=== PATIENT | male | born 1980 | race Caucasian/White ===

== ENCOUNTER 2016-12-21 10:55 | Day surgery (SDC) | payer BC, OTHER ==
--- NOTE | 2016-12-17 14:18 | DIAGNOSTIC IMAGING REPORT ---
CHEST 2 VIEWS ROUTINE CLINICAL HISTORY: N20.0 Nephrolithiasis nephrocalcinosis COMPARISON STUDY: No previous studies for comparison. FINDINGS: The bones soft tissues and hemidiaphragms are normal. The cardiomediastinal silhouette is normal. The lungs are clear. The pulmonary vasculature is normal. IMPRESSION: Negative chest. Electronically signed by: Stalin Pettit M.D. 12/17/2016 2:16 PM Dictated Date/Time: 12/17/2016 2:16 PM
--- NOTE | 2016-12-17 14:40 | DIAGNOSTIC IMAGING REPORT ---
KUB CLINICAL HISTORY: N20.0 Nephrolithiasis nephrocalcinosis COMPARISON STUDY: 07/02/2016 FINDINGS: Interval removal of the right ureteral stent. No abnormal calcifications. Nonobstructive bowel pattern. IMPRESSION: Interval removal of the right ureteral stent. No evidence for nephrocalcinosis. Electronically signed by: Stalin Pettit M.D. 12/17/2016 2:38 PM Dictated Date/Time: 12/17/2016 2:38 PM
[2016-12-20 16:16] VITALS: Ht 177.8 cm; Wt 90.9 kg
[~2016-12-21] VITALS: Ht 177.8 cm; Wt 90.9 kg
[~2016-12-21 10:55] MED LIST: CALC500C3 PO; CIPROFLOXACIN / D5W 400 MG IV SCH; LACTATED RINGER'S 1000ML 1,000 ML IV SCH; OXYC-57 PO; SULF800T23 PO; TAMS0.4C38 PO
[2016-12-21 11:13] VITALS: BP 123/75; PULSE 74; TEMP 36.6; O2SAT 97
[2016-12-21] MEDS ORDERED: FENTANYL CITRATE INJ 50 MCG/1 ML 2 ML VIAL ONE (11:13)
[2016-12-21] MEDS ORDERED: MIDAZOLAM HCL 1 MG/ML 2ML VIAL ONE (11:13)
--- NOTE | 2016-12-21 11:34 | History & Physical Bridge Note ---
H&P Re-Evaluation Bridge Note: I have examined the patient, reviewed the History & Physical and in the interval since the performance of the History & Physical I have noted the following changes of clinical significance: No changes noted
[2016-12-21] MEDS ORDERED: CONRAY 30% 150ML BOTTLE ONE (11:39)
[2016-12-21] MEDS ORDERED: OXYC-57 PO (11:40)
[2016-12-21] MEDS ORDERED: SULF800T23 PO (11:40)
[2016-12-21] MEDS ORDERED: PHEN-775 PO (11:40)
[2016-12-21] MEDS ORDERED: POTATAB2 PO (11:41)
--- NOTE | 2016-12-21 11:41 | Discharge Instructions ---
Discharge Instructions Date of Service Dec 21, 2016. Admission Reason for Admission: STONE Discharge Discharge Diagnosis / Problem: stones Discharge Goals Goal(s): Decrease discomfort, Improve function, Increase independence, Improve disease control Activity Recommendations Activity Limitations: resume your previous activity Lifting Limitations: none Exercise/Sports Limitations: none May Resume Sexual Activity: when tolerated Shower/Bathe: no limitations Driving or Machine Use: resume 1 day after discharge . Instructions / Follow-Up Instructions / Follow-Up Please do not pull on the string that is taped to your penis. Please come to Dr. Madison's office on Tuesday, December 27 at 9AM to have your stent removed. Discharge Diet Recommended Diet: Regular Diet Pending Studies Studies pending at discharge: no Medical Emergencies . Who to Call and When: Medical Emergencies: If at any time you feel your situation is an emergency, please call 911 immediately. . Non-Emergent Contact Non-Emergency issues call your: Urologist Call Non-Emergent contact if: you have a fever, temperature is above 101.5, your pain is not controlled, your pain is worsening . . "Provider Documentation" section prepared by Molina Osman. . VTE Core Measure Inpt VTE Proph given/why not?: Treatment not indicated
[2016-12-21] MEDS ORDERED: ONDANSETRON INJ 2 MG/ML 2 ML VIAL IV PRN (11:45)
[2016-12-21] MEDS ORDERED: ATROPINE SULFATE 0.1 MG/ML 5ML SYR IV PRN (11:45)
[2016-12-21] MEDS ORDERED: FENTANYL CITRATE INJ 50 MCG/1 ML 2 ML VIAL IV PRN (11:45)
[2016-12-21] MEDS ORDERED: EpHEDrine SULFATE INJ 50 MG/ML AMP IV PRN (11:45)
[2016-12-21] MEDS ORDERED: DEXAMETHASONE SOD INJ 4 MG/ML VIAL ONE (12:30)
[2016-12-21] MEDS ORDERED: ONDANSETRON INJ 2 MG/ML 2 ML VIAL ONE (12:30)
[2016-12-21] MEDS ORDERED: KETOROLAC TROMETHAMINE 30 MG/ML VIAL ONE (12:30)
[2016-12-21] MEDS ORDERED: PROPOFOL IV EMULSION 10 MG/ML 20 ML VIAL IV ONE (12:30)
[2016-12-21] MEDS ORDERED: LIDOCAINE HCL 2% 2 ML VIAL (20MG/ML) ONE (12:30)
--- NOTE | 2016-12-21 14:13 | [facility] Post Operative Brief Note ---
Immediate Operative Summary Operative Date Dec 21, 2016. Pre-Operative Diagnosis Nephrolithiasis Post-Operative Diagnosis Nephrolithiasis Procedure(s) Performed cystoscopy; right ureteroscopy; laser lithotripsy; basket manipulation of stones; stent placement ([id number]) Surgeon Dr. Eva Madison [employer] Surgeon(s) none Estimated Blood Loss 5ml Findings 4 stones in the right kidney; all fragmented. Specimens none per surgeon Drains [id number] Anesthesia gen Complication(s) None Disposition Recovery Room / PACU (stable)
[2016-12-21] MEDS ORDERED: SODIUM CHLORIDE 0.9% 1000ML 1,000 ML IV SCH (14:14)
[2016-12-21] MEDS ORDERED: HYDROCODONE/ACETAMOPHEN 5/325MG TAB PO PRN ×2 (14:15)
[2016-12-21 14:45] VITALS: BP 124/78; PULSE 74; TEMP 36.5; O2SAT 96
--- NOTE | 2016-12-21 15:10 | Anesthesiology Progress Note ---
Anesthesia Post Op Note Date & Time Dec 21, 2016 at 15:11 Vital Signs Pain Intensity: 0 Vital Signs Past 12 Hours Date Time Temp Pulse Resp B/P (MAP) Pulse Ox O2 Delivery O2 Flow Rate FiO2 12/21/16 14:45 36.5 74 18 124/78 96 Room Air 0 12/21/16 14:45 82 18 129/78 96 Room Air 12/21/16 14:35 85 16 125/80 95 Room Air 12/21/16 14:25 80 14 136/88 98 Room Air 12/21/16 14:15 75 14 127/65 98 Mask 10 12/21/16 14:07 36.3 77 16 108/55 98 Mask 10 12/21/16 11:13 36.6 74 18 123/75 (91) 97 Room Air Notes Mental Status: alert / awake / arousable, participated in evaluation Pt Amnestic to Procedure: Yes Nausea / Vomiting: adequately controlled Pain: adequately controlled Airway Patency, RR, SpO2: stable & adequate BP & HR: stable & adequate Hydration State: stable & adequate Anesthetic Complications: no major complications apparent
--- NOTE | 2016-12-21 15:12 | OPERATIVE REPORT ---
DATE OF OPERATION: 12/21/2016 PREOPERATIVE DIAGNOSIS: Right renal calculi. POSTOPERATIVE DIAGNOSIS: Right renal calculi. PROCEDURES PERFORMED: Cystoscopy, right ureteroscopy, laser lithotripsy, basket stone manipulation and ureteral stent placement 6-Serbian x 26 cm. ANESTHESIA: General. ESTIMATED BLOOD LOSS: 5 mL. URINE OUTPUT: Not recorded. SPECIMENS: There were no specimens. DRAINS: A 6-Serbian 26-cm double-J ureteral stent. DESCRIPTION OF THE PROCEDURE: Jesus Johnson was identified in the preoperative holding area. Appropriate informed consents were reviewed and completed and the patient was transported to the operating suite. Upon arrival, he received appropriate preoperative antibiotics in the form of ciprofloxacin. Adequate general anesthesia was achieved and he was placed in dorsal lithotomy position and sterilely prepped and draped in standard fashion. I began the case by attempting to pass a 22-Serbian cystoscope. Of note, he had a meatal stenosis, which was dilated with male urethral sounds to 26-Serbian. I was then easily able to pass the scope. There was no other evidence of any stricture disease. Inspection of the bladder was carried out. There were no stones or mucosal abnormalities appreciated. Ureteral orifices were in orthotopic position. I then turned my attention to the right ureteral orifice and cannulated it with a 10-Serbian double-lumen catheter and a sensor wire. The wire was advanced to the kidney without difficulty followed by advancement of the 10-Serbian double lumen ureteral catheter to the mid ureter. I utilized the second port of this catheter to pass a second wire to the kidney. Of note, there were no true opacities appreciated on fluoroscopy. This was consistent with the preoperative KUB, which failed to show the stones that were present on CT. I then withdrew the 10-Serbian double lumen catheter and passed a 12-Serbian ureteral access sheath to the level of the UPJ. I passed a flexible ureteroscope at that time and inspected the kidney. There was a stone located within the renal pelvis, which likely the stone that was previously visualized near the UPJ on CT. He additionally had 3 other stones in the mid to lower pole. I pushed the stone from the renal pelvis into the upper pole and then I passed an ureteroscopic basket and manipulated the stones out of the lower pole and into the upper pole. I did attempt to see if I could manipulate these down the ureter; however, they were too large and I in turn left them in the kidney. I then passed a 400 micron laser fiber and began laser lithotripsy. I fragmented these stones maximally and flushed as much of the stone debris from the kidney as possible. After I felt I had adequately fractured all stones, I performed a very careful repeat renoscopy and I saw no other large retained stone fragments. I then performed a careful exit ureteroscopy while leaving my scope just beyond the distal tip of the ureteral access sheath. There was no evidence of any ureteral trauma nor persistent ureteral stones. After withdrawing the scope and access sheath, I utilized the existing safety wire and placed a 6-Serbian x 26-cm double-J ureteral stent. There was a good curl in the upper pole of the kidney as well as a good curl in the bladder. A dangling string was left attached to the stent. The patient was subsequently extubated and taken to the PACU in stable condition. I attest to the content of the Intraoperative Record and any orders documented therein. Any exception s are noted below.
[2016-12-21 15:15] VITALS: BP 127/74; PULSE 74; TEMP 36.1; O2SAT 95
[2016-12-21] MEDS ORDERED: TAMSULOSIN HCL 0.4 MG CAP PO SCH ×2 (15:30→21:00)
[2016-12-21 15:45] VITALS: BP 135/90; PULSE 70; TEMP 36.5; O2SAT 98
[2016-12-21 16:45] VITALS: BP 136/88; PULSE 70; TEMP 36.5; O2SAT 98
== END 2016-12-21 16:55 | disposition home or self-care (01) ==
LOC: C.ACU 10:55
PROVIDERS: ATTEND Urology
DX: N20.0 Calculus of kidney (principal); F17.200 Nicotine dependence, unspecified, uncomplicated

== ENCOUNTER → 2017-05-23 | Outpatient (CLI) | payer BC ==
[~2017-05-23] MED LIST changes: -CIPROFLOXACIN / D5W 400 MG IV SCH; -LACTATED RINGER'S 1000ML 1,000 ML IV SCH; +POTATAB2 PO
--- NOTE | 2017-05-23 15:58 | DIAGNOSTIC IMAGING REPORT ---
ABDOMEN AND PELVIS CT WITHOUT CONTRAST CT DOSE: 682.03 mGy.cm HISTORY: Acute right-sided flank pain with history of nephrolithiasis N20.0 [id number] E [id number] TECHNIQUE: Multiaxial CT images of the abdomen and pelvis were performed without contrast. A dose lowering technique was utilized adhering to the principles of ALARA. COMPARISON STUDY: KUB 12/21/2016, CT 12/17/2016. FINDINGS: Linear and subsegmental groundglass opacities of the lung bases suggest atelectasis or scarring. No pneumoperitoneum. The imaged inferior cardiac chambers are unremarkable. There is diffuse fatty infiltration of the liver. The spleen, pancreas and adrenal glands are unremarkable. Gallbladder is collapsed. Low attenuating 11 mm lesion of the lateral aspect interpolar left kidney suggests renal cyst. There are 2 large nonobstructing calculi of the inferior pole right kidney, the first measuring 8 x 6 mm on image 2:15 series 3 and the second measuring 6 x 4 mm on image 227 series 3. No ureteral calculi or hydronephrosis. The bilateral ureters and urinary bladder are unremarkable. Prostate is within normal limits. The dominant aorta is normal in both course and caliber. No bulky adenopathy. There is no bowel obstruction. Postoperative changes compatible with prior total colectomy and ileoanal pouch. No evidence of anastomotic dehiscence. Soft tissues are unremarkable. Bones are intact. IMPRESSION: 1. Nonobstructing large calculi of the inferior pole right kidney as above. No ureteral calculi or obstructive uropathy. 2. Prior total colectomy with ileoanal pouch. No bowel obstruction. 3. Fatty infiltration of the liver. Electronically signed by: Kal Hill M.D. 05/23/2017 3:56 PM Dictated Date/Time: 05/23/2017 3:49 PM
== END | disposition home or self-care (01) ==
LOC: C.CTS 15:17
PROVIDERS: ATTEND Urology
DX: N20.0 Calculus of kidney (principal); K76.0 Fatty (change of) liver, not elsewhere classified